=== PATIENT | male | born 1940 | race Caucasian/White ===

== ENCOUNTER → 2018-06-28 | Outpatient (CLI) | payer MEDICARE ==
[~2018-06-28] MED LIST: ATEN50TA41 PO
== END | disposition home or self-care (01) ==
LOC: RAD 12:59
PROVIDERS: ATTEND Internal Medicine
DX: K44.9 Diaphragmatic hernia without obstruction or gangrene (principal); K22.8 Other specified diseases of esophagus
CPT/HCPCS: 71046; 74220